=== PATIENT | female | born 1945 | race Caucasian/White ===

== ENCOUNTER 2019-11-21 18:21 | Inpatient (IN) | payer MEDICAID ==
[~2019-11-21] VITALS: Ht 160 cm; Wt 62.1 kg
[2019-11-21 19:13] LABS: BASOPHILS % (AUTO) 0.8 % (0.0-2.0); EOSINOPHILS % (AUTO) 3.4 % (0.0-6.0); HEMATOCRIT 22 % (33-45); HEMOGLOBIN 7.2 g/dL (11.5-14.8); LYMPHOCYTES # (AUTO) 0.3 /CMM (0.8-4.8); LYMPHOCYTES % (AUTO) 5.6 % (20.0-44.0); MEAN CORPUSCULAR HGB CONC 33 g/dl (31.0-36.0); MEAN CORPUSCULAR VOLUME 99 fL (82-100); MONOCYTES # (AUTO) 0.4 /CMM (0.1-1.30); MONOCYTES % (AUTO) 6.3 % (2.0-12.0); NEUTROPHILS # (AUTO) 5.3 /CMM (1.8-8.9); NEUTROPHILS % (AUTO) 83.9 % (43.0-81.0); PLATELET COUNT (AUTO) 267 /CMM (150-450); RED BLOOD CELL COUNT(AUTO) 2.25 MIL/uL (4.0-5.2); WHITE BLOOD COUNT (AUTO) 6.3 K/uL (4.3-11.0)
--- NOTE | 2019-11-21 19:16 | NUR ---
Patient came to ED C/C SOB ,place on monito,EKG ,gown ,Bipap per MD
--- NOTE | 2019-11-21 19:19 | NUR ---
TRansfer care report to Elisabeth KAM
[2019-11-21 19:28] LABS: ALANINE AMINOTRANSFERASE 28 U/L (12-78); ALBUMIN 3.5 g/dL (3.4-5.0); ALKALINE PHOSPHATASE 214 U/L (46-116); ASPARTATE AMINOTRANSFERASE 26 U/L (15-37); BILIRUBIN,DIRECT 0.1 mg/dL (0.0-0.2); BILIRUBIN,TOTAL 0.4 mg/dL (0.2-1.0); CALCIUM, SERUM 8.7 mg/dL (8.5-10.1); CARBON DIOXIDE 24 mmol/L (21-32); CHLORIDE 97 mmol/L (98-107); GLUCOSE 97 mg/dL (74-106); SODIUM SERUM 137 mmol/L (136-145); TOTAL PROTEIN, SERUM 7.8 g/dL (6.4-8.2)
[2019-11-21 19:30] LABS: CREATININE 11.4 mg/dL (0.6-1.3); POTASSIUM 7.3 mmol/L (3.5-5.1); UREA NITROGEN, BLOOD 99 mg/dL (7-18)
[2019-11-21] MEDS ORDERED: ALBUTEROL FS 2.5 MG/3 ML VIAL.NEB ONE (19:45)
[2019-11-21] MEDS ORDERED: Calcium Gluconate 0.465 MEQ/ML VIAL IV ONE (19:48)
[2019-11-21] MEDS ORDERED: INSULIN REGULAR, HUMAN 100 UNIT/ML 10 ML VIAL ONE (19:48)
[2019-11-21] MEDS ORDERED: DEXTROSE 50%-WATER 50 ML DISP.SYRIN ONE ×2 (19:48→19:59)
--- NOTE | 2019-11-21 19:56 | NUR ---
CALLED [facility]. MANAGER CASE MANAGEMENT WAS PAGED
--- NOTE | 2019-11-21 19:59 | NUR ---
CALLED [facility] FOR [facility] BED
[2019-11-21] MEDS ORDERED: DEXTROSE 50%-WATER 50 ML DISP.SYRIN IVP ONE ×2 (20:00→23:00)
[2019-11-21] MEDS ORDERED: Calcium Gluconate 1GM/10ML 4.65 MEQ in IV NS 0.9% 40 ML IV ONE (20:00)
[2019-11-21] MEDS ORDERED: ALBUTEROL FS 2.5 MG/3 ML VIAL.NEB NEB ONE (20:00)
[2019-11-21] MEDS ORDERED: INSULIN REGULAR, HUMAN 100 UNIT/ML 10 ML VIAL IV ONE (20:00)
--- NOTE | 2019-11-21 20:16 | NUR ---
BED 116-2
[2019-11-21] MEDS ORDERED: SEVE800T8 PO (20:28)
[2019-11-21] MEDS ORDERED: CINA30TA2 PO (20:28)
[2019-11-21] MEDS ORDERED: DOCU100C36 PO (20:28)
[2019-11-21] MEDS ORDERED: SENN-18 PO (20:28)
[2019-11-21] MEDS ORDERED: CALC667C6 PO (20:28)
[2019-11-21] MEDS ORDERED: CALC1TAB30 PO (20:28)
[2019-11-21] MEDS ORDERED: ESOM20CA PO (20:28)
[2019-11-21] MEDS ORDERED: FURO-144 PO (20:28)
[2019-11-21] MEDS ORDERED: NIFE60TA2 PO (20:28)
[2019-11-21] MEDS ORDERED: ATOR10TA PO (20:28)
[2019-11-21] MEDS ORDERED: CLON-418 PO (20:28)
--- NOTE | 2019-11-21 21:14 | NUR ---
PT WAS PLACED ON O2 AT 5 LPM VIA NC. SATTING 100% . NO SOB. WILL CONT TO MONITOR ,
[2019-11-21] MEDS ORDERED: Z GUARD REMEDY 2 OZ OINT TP PRN (22:00)
[2019-11-21] MEDS ORDERED: MAG HYDROX/AL HYDROX/SIMETH 30 ML UDC PO PRN (22:00)
[2019-11-21] MEDS ORDERED: HYDROCODONE/APAP 5/325MG 1 EACH TABLET PO PRN (22:00)
[2019-11-21] MEDS ORDERED: SODIUM POLYSTYRENE SULFONATE 15 G/60 ML BOTTLE PO ONE (22:00)
[2019-11-21] MEDS ORDERED: MAGNESIUM HYDROXIDE 30 ML UDC PO PRN (22:00)
[2019-11-21] MEDS ORDERED: ONDANSETRON HCL/PF 4 MG/2 ML VIAL IVP PRN (22:00)
[2019-11-21] MEDS ORDERED: ACETAMINOPHEN 325 MG TABLET PO PRN (22:00)
--- NOTE | 2019-11-21 22:02 | NUR ---
REPORT GIVEN TO MARK FOR RUFUS
--- NOTE | 2019-11-21 22:15 | NUR ---
PT WAS TRANSFERRED TO [facility] UNDER ACLS
--- NOTE | 2019-11-21 22:30 | NUR ---
ACADEMIC PROGRAM SPECIALIST NOTES, RECEIVED PATIENT FROM ER DEPARTMENT AT 2220 IN COMPANY OF 2 NURSES, A/O X3 ABLE TO VERBALIZED NEEDS, STATES FEELING HOT AND NOTED DIAPHORETIC, AND SWEATING, NS KAYDEN AND NSR IN TELE MONITOR, CHECKED BLOOD SUGAR AND NOTED, 30M Gd/L, GAVE 2 JUICES VIA PO, AND CALLED [facility] [employer] AND REPORTED CONDITION, REPLIED WITH NEW ORDER FRO DEXTROSE 50 INJ, NOTED AND CARRIED OUT, WITH VS 59, 104/45, 20, 98% AT 4LMP VIA NC, 95.8, SKIN INTACT, WILL CONTINUE TO MONITOR CLOSELY.
--- NOTE | 2019-11-21 22:47 | NUR ---
RN NOTES, D50% ADMINISTERED ORDERED WILL CONTINUE TO MONITOR CLOSELY.
--- NOTE | 2019-11-21 23:04 | NUR ---
RN NOTES, PATIENT INITIALLY WITH ORDER FOR ICU, TRANSFERRED TO ICU AT THI TIME, ENDORSED PATIENT TO ED CHARGE NURSE AND PRAVEEN RN, ENDORSED THAT PATIENT RECEIVED D50% AND NEED TO BE RECHECKED AT 2317, PATIENT TRANSFERRED WITH ALL ACLS PROTOCOL.
[2019-11-21 23:08] VITALS: BP 118/60
[2019-11-21 23:09] LABS: ABG BASE EXCESS -7.8 mmol/L; ABG OXYGEN SATURATION 80.3 % (92.0-98.5); ABG PCO2 46.8 mmHg (35.0-45.0); ABG PH 7.234 (7.350-7.450); ABG PO2 59.1 mmHg (75.0-100.0); AaDO2 143.3 mmHg; COHb 0.3 % (0.5-1.5); MetHb 0.7 % (0.0-1.5); O2Hb 79.5 % (94.0-97.0); SITE, ABG Right Radial; VENT MODE, BG Nasal Cannula
[2019-11-21 23:15] VITALS: BP 124/58
[2019-11-21 23:30] VITALS: BP 126/64
[2019-11-21] MEDS: SENNOSIDES 8.6 MG TABLET PO SCH (23:34)
[2019-11-21] MEDS: ATORVASTATIN 10 MG TABLET GT SCH (23:34)
[2019-11-21] MEDS: CINACALCET HCL 30 MG TABLET PO SCH (23:34)
[2019-11-21 23:45] VITALS: BP 126/57
[2019-11-22] VITALS (20 sets, daily range): BP systolic 109–154; BP diastolic 52–83
[2019-11-22] MEDS ORDERED: SODIUM POLYSTYRENE SULFONATE 15 G/60 ML BOTTLE ONE (00:05)
--- NOTE | 2019-11-22 02:41 | NUR ---
FLIGHT DIRECTOR PT WAS TRANSFERRED FROM [facility] WITH DIAGNOSIS SEVERE HYPERKALEMIA. PT HAS ESRD, SHE MISSED HER SCHEDULED HD. BUN-99, CREAT-11.4, K-7.3. PT WAS GIVEN INSULIN 6 UNITS IV, D 50 IV, CALCIUM GLUCONATE IV, AND KAYEXALATE 30 G PO.PT IS AWAKE ALERT ORIENTED. DALE. MOVES ALL EXTREMITIES, NO MOTOR OR SENSORY DEFICIT. C/O OF NO PAIN, SOB OR ANY OTHER DISTRESS. VSS, AFEBRILE, SCOPE-SB. 02 4 L VIA N/C, TOLERATES WELL. PT IS SUPPOSED TO HAVE NEPHROLOGY & PULMONOLOGY CONSULTATION IN A.M. WELL CTA WITHOUT CONTRAST TO R/O LUNG MASS. WILL CONTINUE CLOSE MONITORING.
[2019-11-22 04:56] LABS: BASOPHILS % (AUTO) 0.5 % (0.0-2.0); HEMATOCRIT 22 % (33-45); HEMOGLOBIN 7.1 g/dL (11.5-14.8); LYMPHOCYTES # (AUTO) 0.4 /CMM (0.8-4.8); MEAN CORPUSCULAR HGB CONC 33 g/dl (31.0-36.0); MEAN CORPUSCULAR VOLUME 99 fL (82-100); MONOCYTES # (AUTO) 0.3 /CMM (0.1-1.30); MONOCYTES % (AUTO) 5.3 % (2.0-12.0); NEUTROPHILS # (AUTO) 5.3 /CMM (1.8-8.9); NEUTROPHILS % (AUTO) 86.2 % (43.0-81.0); PLATELET COUNT (AUTO) 251 /CMM (150-450); RED BLOOD CELL COUNT(AUTO) 2.18 MIL/uL (4.0-5.2); WHITE BLOOD COUNT (AUTO) 6.2 K/uL (4.3-11.0)
[2019-11-22 05:24] LABS: CALCIUM, SERUM 8.3 mg/dL (8.5-10.1); CARBON DIOXIDE 25 mmol/L (21-32); CHLORIDE 95 mmol/L (98-107); GLUCOSE 63 mg/dL (74-106); MAGNESIUM 3.1 mg/dL (1.8-2.4); SODIUM SERUM 134 mmol/L (136-145)
[2019-11-22 05:42] LABS: CHOLESTEROL 141 mg/dL (<200); HDL CHOLESTEROL 108 mg/dL (40-60); LDL 26 mg/dL (0-99); THYROID STIMULATING HORMONE 2.652 uIU/mL (0.358-3.74)
[2019-11-22 05:48] LABS: CREATININE 11.3 mg/dL (0.6-1.3); POTASSIUM 7.1 mmol/L (3.5-5.1); UREA NITROGEN, BLOOD 100 mg/dL (7-18)
[2019-11-22 05:49] LABS: PHOSPHORUS 9.6 mg/dL (2.5-4.9)
[2019-11-22 06:20] LABS: TRIGLYCERIDES < 15 mg/dL (30-150)
--- NOTE | 2019-11-22 06:35 | NUR ---
EFFICIENCY ANALYST PT IS ANXIOUS, NONCOMPLIANT. CRITICAL LABS K-7.1, BUN-100, CREAT. 11.3, PHOS-9.6. CAROLINE FINN WAS NOTIFIED. HE ORDERED ANOTHER KAYEXALATE 30 G PO & STATED THAT HD NURSE WILL COME AROUND 7-8 A.M. FOR STAT HD. BATH GIVEN, LINEN CHANGED. DENIES SOB OR PAIN. VITAL SIGNS STABLE.
[2019-11-22] MEDS ORDERED: SODIUM POLYSTYRENE SULFONATE 15 G/60 ML BOTTLE PO ONE (07:00)
[2019-11-22] MEDS: PANTOPRAZOLE 40 MG TABLET.DR PO SCH (07:21)
[2019-11-22] MEDS: CALCIUM ACETATE 667 MG TABLET PO SCH ×3 (07:21→17:06)
[2019-11-22] MEDS ORDERED: ESOMEPRAZOLE MAG TRIHYDRATE 20 MG CAPSULE.DR PO SCH (07:30)
--- NOTE | 2019-11-22 07:30 | NUR ---
HOOK TENDER AM NOTES PT IN BED, ASLEEP, RESPONDS TO NAME AND TOUCH, ALERT/ORIENTED X 2-3, PERIOD OF CONFUSION, ON 4L O2 VIA NASAL CANULA, REFUSE TO MOVE OR TURN AND BODY ASSESSMENT, SOB NOTED ON EXERTION OR TURNING, SINUS KAYDEN TO SINUS RHYTHM HR 58 -63. DENIES PAIN, AFEBRILE, KARENA SHUNT THRILL PRESENT, LCW HD CATH CDI DRESSING. RT AC G 20 HL FLUSHES WELL, SITE CLEAR. WEARS DIAPER, CCHO DIET, SAFETY MEASURES IN PLACE, BED LOW LOCKED, WILL CONTINUE CLOSE MONITORING.
--- NOTE | 2019-11-22 08:34 | NUR ---
PSYCHIATRY PHYSICIAN NOTES TAI HD NURSE AT BEDSIDE
[2019-11-22] MEDS: DOCUSATE SODIUM 100 MG CAPSULE PO SCH ×2 (08:56→17:06)
[2019-11-22] MEDS: SEVELAMER CARBONATE 800 MG TABLET PO SCH ×3 (08:56→17:06)
[2019-11-22] MEDS: CALCIUM CARB 250MG /VITAMIN D 1 UDTAB PO SCH (08:56)
[2019-11-22] MEDS: CLONIDINE HCL 0.1 MG TABLET PO SCH ×2 (08:57→17:06)
[2019-11-22] MEDS: NIFEdipine XL 60 MG TAB PO SCH ×2 (09:00→17:06)
[2019-11-22] MEDS: FUROSEMIDE 40 MG TABLET PO SCH ×2 (09:00→17:06)
--- NOTE | 2019-11-22 09:30 | NUR ---
GUEST SERVICES LEAD NOTES BP MEDS NOT GIVEN ONGOING HD
--- NOTE | 2019-11-22 11:10 | NUR ---
RN NOTES HD COMPLETED. 2 LITERS OUT KAYEXELATE 30 GMS GIVEN EARLIER.
[2019-11-22] MEDS ORDERED: ALBUTEROL HALF STRENGTH 1.25 MG/3 ML VIAL.NEB NEB SCH (15:00)
[2019-11-22] MEDS: IPRATROPIUM NEB FS 0.5 MG/2.5 ML AMPUL.NEB NEB SCH ×3 (16:26→23:57)
[2019-11-22] MEDS: ALBUTEROL HALF STRENGTH 1.25 MG/3 ML VIAL.NEB NEB SCH ×3 (16:26→23:57)
--- NOTE | 2019-11-22 16:29 | NUR ---
CLIENT SERVICE ASSOCIATE NOTES PER DR. GALLEGOS OK TO DOWNGRADE TO TELEMETRY
[2019-11-22 16:33] LABS: ABG BASE EXCESS 2.9 mmol/L; ABG PH 7.425 (7.350-7.450); ABG PO2 86.6 mmHg (75.0-100.0); AaDO2 120.2 mmHg; COHb 0.5 % (0.5-1.5); MetHb 0.7 % (0.0-1.5); O2Hb 93.9 % (94.0-97.0); SITE, ABG Right Radial; VENT MODE, BG 4L NASAL CANULA
--- NOTE | 2019-11-22 17:55 | NUR ---
RN NOTES PER JOSE M CHARGE NURSE, GIVE REPORT TO INCOMING NURSE AT TELE 1 FLOOR AND TRANSFER NEXT SHIFT.
--- NOTE | 2019-11-22 18:32 | NUR ---
TELEMARKETING MANAGER CLOSING NOTES PT IN BED, RESTING COMFORTABLY, ALERT/ORIENTED X 2-3, PERIOD OF CONFUSION, ON 4L O2 VIA NASAL CANULA, SOB NOTED ON EXERTION OR TURNING, SINUS KAYDEN TO SINUS RHYTHM HR 58 -68. DENIES PAIN, AFEBRILE, KARENA SHUNT THRILL PRESENT, LCW HD CATH CDI DRESSING. RT AC G 20 HL FLUSHES WELL, SITE CLEAR. WEARS DIAPER, CCHO DIET, SAFETY MEASURES IN PLACE, BED LOW LOCKED, PATIENT ABLE TO TURN SELF INDEPENDENTLY. PM CARE DONE. CALL LIGHT WITHIN REACH. ALL NEEDS MET AT THIS TIME. HOB ELEVATED. WILL ENDORSE TO NEXT SHIFT FOR RUFUS.
--- NOTE | 2019-11-22 19:20 | NUR ---
SENIOR C SOFTWARE ENGINEER OPENING NOTE RECEIVED PT TO BED 112-1 TRANSFERRED FROM ICU. PT AWAKE IN BED, ALERT AND ORIENTED TO NAME, PLACE AND TIME, ON 02 VIA NC 2L/MIN, SATURATING WELL, NO SIGNS OF RESPIRATORY DISTRESS NOTED. ON TELE MONITOR SINUS RHYTHM HR 68. DENIES PAIN. KARENA SHUNT THRILL PRESENT, LCW HD CATH DRESSING INTACT, CLEAN, DRY. IV SITE ON RIGHT AC G20 PATENT, INTACT, WITH HEP LOCK IN PLACE. INTRODUCED SELF TO PT, DISCUSSED PLAN OF CARE. BED IN LOW POSITION, LOCKED, CALL LIGHT WITHIN REACH.
--- NOTE | 2019-11-22 21:02 | NUR ---
GAVE REPORT TO FRANCISCO FOR RUFUS.
--- NOTE | 2019-11-22 21:10 | NUR ---
RECEIVED PATIENT FROM MELISSA KAM FOR RUFUS.
--- NOTE | 2019-11-22 22:08 | NUR ---
GAVE REPORT TO MAN KAM FOR RUFUS.
--- NOTE | 2019-11-22 22:16 | NUR ---
TELE1/RN ASSUMED CARE OF THIS PATIENT FOR CONTINUITY OF CARE, PATIENT IS AWAKE, ALERT, ORIENTED, MILD ANXIETY NOTED, NO DISTRESS NOTED, FALL RISK, FALL PRECAUTIONS IN PLACE. WILL MONITOR.
[2019-11-22] MEDS: CINACALCET HCL 30 MG TABLET PO SCH (23:14)
[2019-11-22] MEDS: SENNOSIDES 8.6 MG TABLET PO SCH (23:14)
[2019-11-22] MEDS: ATORVASTATIN 10 MG TABLET GT SCH (23:14)
[2019-11-23] VITALS (11 sets, daily range): BP systolic 116–200; BP diastolic 45–110
[2019-11-23] MEDS: ALBUTEROL HALF STRENGTH 1.25 MG/3 ML VIAL.NEB NEB SCH ×6 (03:25→23:40)
[2019-11-23] MEDS: IPRATROPIUM NEB FS 0.5 MG/2.5 ML AMPUL.NEB NEB SCH ×6 (03:26→23:40)
--- NOTE | 2019-11-23 06:15 | NUR ---
TELE1/RN PATIENT SLEEPING, AROUSABLE, APPEAR COMFORTABLE, NO SIGNS OF DISTRESS NOTED ALL NEEDS ATTENDED AT THIS TIME, WILL CONTINUE TO MONITOR.
[2019-11-23 07:26] LABS: BASOPHILS % (AUTO) 0.8 % (0.0-2.0); EOSINOPHILS % (AUTO) 5.2 % (0.0-6.0); LYMPHOCYTES # (AUTO) 0.5 /CMM (0.8-4.8); LYMPHOCYTES % (AUTO) 12.7 % (20.0-44.0); MEAN CORPUSCULAR HGB CONC 33 g/dl (31.0-36.0); MEAN CORPUSCULAR VOLUME 98 fL (82-100); MONOCYTES # (AUTO) 0.5 /CMM (0.1-1.30); MONOCYTES % (AUTO) 12.4 % (2.0-12.0); NEUTROPHILS % (AUTO) 68.9 % (43.0-81.0); PLATELET COUNT (AUTO) 228 /CMM (150-450); WHITE BLOOD COUNT (AUTO) 4.3 K/uL (4.3-11.0)
[2019-11-23 07:32] LABS: RED BLOOD CELL COUNT(AUTO) 1.88 MIL/uL (4.0-5.2)
[2019-11-23 07:33] LABS: HEMATOCRIT 19 % (33-45)
[2019-11-23 07:34] LABS: HEMOGLOBIN 6.1 g/dL (11.5-14.8)
--- NOTE | 2019-11-23 07:40 | NUR ---
telemetry technician note patient in bed,2, on tele monitor hr 65 , hl rt ac hl intact ,lt cw hd cath in place, awake alert oriented x2, rt at bedside on breathing tx at this time , plan of care discussed with patient,lt arm av shunt palpable but using for hd at this time , bed in lowest and locked position , will cont to monitor,call light within reach
[2019-11-23 08:15] LABS: CARBON DIOXIDE 28 mmol/L (21-32); CHLORIDE 96 mmol/L (98-107); GLUCOSE 86 mg/dL (74-106); POTASSIUM 4.7 mmol/L (3.5-5.1); SODIUM SERUM 136 mmol/L (136-145); UREA NITROGEN, BLOOD 57 mg/dL (7-18)
[2019-11-23 08:19] LABS: EOSINOPHILS % (MANUAL) 6 % (0-4); LYMPHOCYTES % (MANUAL) 14 % (16-48); MONOCYTES % (MANUAL) 12 % (0-11.0); NEUTROPHILS % (MANUAL) 68 (42-76)
[2019-11-23 08:27] LABS: CREATININE 7.7 mg/dL (0.6-1.3)
[2019-11-23] MEDS: DOCUSATE SODIUM 100 MG CAPSULE PO SCH ×2 (08:33→16:22)
[2019-11-23] MEDS: PANTOPRAZOLE 40 MG TABLET.DR PO SCH (08:33)
[2019-11-23] MEDS: SEVELAMER CARBONATE 800 MG TABLET PO SCH ×3 (08:33→16:21)
[2019-11-23] MEDS: CLONIDINE HCL 0.1 MG TABLET PO SCH ×3 (08:34→16:22)
[2019-11-23] MEDS: CALCIUM ACETATE 667 MG TABLET PO SCH ×3 (08:34→17:13)
[2019-11-23] MEDS: FUROSEMIDE 40 MG TABLET PO SCH ×2 (08:34→16:22)
[2019-11-23] MEDS: CALCIUM CARB 250MG /VITAMIN D 1 UDTAB PO SCH (08:34)
[2019-11-23] MEDS: NIFEdipine XL 60 MG TAB PO SCH ×2 (08:34→16:22)
--- NOTE | 2019-11-23 08:42 | NUR ---
telegraph messenger note hg 6.[address] jackson at bedside aware about this with order to transfuse 1 unit prbs with hd , also Catapres and Procardia hold at this time , patient will have hd
--- NOTE | 2019-11-23 10:34 | NUR ---
BUSINESS APPLICATIONS SPECIALIST NOTES On HD now start blood transfusion 1 unit of packed red blood cells by hd nurse Will continue to monitor and assess per transfusion protocol.
--- NOTE | 2019-11-23 11:41 | NUR ---
television news video editor note hd nurse completed transfuse 1 unit prbc no adverse reaction noted
--- NOTE | 2019-11-23 14:21 | NUR ---
telephone sales representative note hd completed 2,4 l is out. bp192/68 hr 78
--- NOTE | 2019-11-23 15:00 | NUR ---
ms rn note radiology called stated ct chest will done latter on
--- NOTE | 2019-11-23 17:49 | NUR ---
ms rn note taken to ct chest as ordered
--- NOTE | 2019-11-23 18:35 | NUR ---
ms rn note all needs attended having dinner , able to eat self not in distress at this time, will cont to monitor
--- NOTE | 2019-11-23 19:40 | NUR ---
MS RN OPENING NOTES, RECEIVED PATIENT IN BED AWAKE, RESTING COMFORTABLY, A/O X 2, ON 2L NS TOLERATING WELL. NO SOB OR ACUTE DISTRESS NOTED AT THIS TIME. IV ON RAC #20, LCW HD CATH, L ARM AV SHUNT, BED IN LOW/LOCKED POSITION. CALL LIGHT WITHIN REACH, WILL CONTINUE TO MONITOR.
[2019-11-23] MEDS: ATORVASTATIN 10 MG TABLET GT SCH (22:02)
[2019-11-23] MEDS: SENNOSIDES 8.6 MG TABLET PO SCH (22:02)
[2019-11-23] MEDS: CINACALCET HCL 30 MG TABLET PO SCH (22:03)
[2019-11-24] MEDS: ALBUTEROL HALF STRENGTH 1.25 MG/3 ML VIAL.NEB NEB SCH ×4 (03:43→15:04)
[2019-11-24] MEDS: IPRATROPIUM NEB FS 0.5 MG/2.5 ML AMPUL.NEB NEB SCH ×4 (03:43→15:04)
[2019-11-24 04:00] VITALS: BP 145/70
--- NOTE | 2019-11-24 07:22 | NUR ---
MS RN CLOSING NOTES, PATIENT IN BED RESTING, RESTING COMFORTABLY, A/O X 2, ON 2L NS TOLERATING WELL. NO SOB OR ACUTE DISTRESS NOTED AT THIS TIME. IV ON RAC #20, LCW HD CATH, L ARM AV SHUNT, BED IN LOW/LOCKED POSITION. CALL LIGHT WITHIN REACH,ENDORSED THE PATIENT TO AM RN FOR RUFUS.
[2019-11-24 08:00] VITALS: BP 140/58
[2019-11-24 08:04] LABS: BASOPHILS % (AUTO) 0.7 % (0.0-2.0); HEMATOCRIT 23 % (33-45); HEMOGLOBIN 7.4 g/dL (11.5-14.8); LYMPHOCYTES # (AUTO) 0.6 /CMM (0.8-4.8); LYMPHOCYTES % (AUTO) 11.9 % (20.0-44.0); MEAN CORPUSCULAR HGB CONC 33 g/dl (31.0-36.0); MEAN CORPUSCULAR VOLUME 97 fL (82-100); MONOCYTES # (AUTO) 0.5 /CMM (0.1-1.30); MONOCYTES % (AUTO) 10.8 % (2.0-12.0); NEUTROPHILS # (AUTO) 3.2 /CMM (1.8-8.9); NEUTROPHILS % (AUTO) 64.6 % (43.0-81.0); PLATELET COUNT (AUTO) 207 /CMM (150-450); RED BLOOD CELL COUNT(AUTO) 2.33 MIL/uL (4.0-5.2)
[2019-11-24 08:33] LABS: ALANINE AMINOTRANSFERASE 30 U/L (12-78); ALBUMIN 3.1 g/dL (3.4-5.0); ALKALINE PHOSPHATASE 186 U/L (46-116); ASPARTATE AMINOTRANSFERASE 22 U/L (15-37); BILIRUBIN,TOTAL 0.4 mg/dL (0.2-1.0); CALCIUM, SERUM 8.3 mg/dL (8.5-10.1); CARBON DIOXIDE 27 mmol/L (21-32); CHLORIDE 100 mmol/L (98-107); CREATININE 6.3 mg/dL (0.6-1.3); GLUCOSE 86 mg/dL (74-106); MAGNESIUM 2.4 mg/dL (1.8-2.4); PHOSPHORUS 6.7 mg/dL (2.5-4.9); POTASSIUM 4.9 mmol/L (3.5-5.1); SODIUM SERUM 139 mmol/L (136-145); TOTAL PROTEIN, SERUM 7.1 g/dL (6.4-8.2); UREA NITROGEN, BLOOD 53 mg/dL (7-18)
[2019-11-24] MEDS: NIFEdipine XL 60 MG TAB PO SCH ×2 (09:28→17:42)
[2019-11-24] MEDS: DOCUSATE SODIUM 100 MG CAPSULE PO SCH ×2 (09:29→17:42)
[2019-11-24] MEDS: SEVELAMER CARBONATE 800 MG TABLET PO SCH ×3 (09:29→17:42)
[2019-11-24] MEDS: CLONIDINE HCL 0.1 MG TABLET PO SCH ×2 (09:30→17:42)
[2019-11-24] MEDS: PANTOPRAZOLE 40 MG TABLET.DR PO SCH (09:30)
[2019-11-24] MEDS: FUROSEMIDE 40 MG TABLET PO SCH ×2 (09:30→17:42)
[2019-11-24] MEDS: CALCIUM ACETATE 667 MG TABLET PO SCH ×3 (09:32→17:43)
[2019-11-24] MEDS: CALCIUM CARB 250MG /VITAMIN D 1 UDTAB PO SCH (09:37)
[2019-11-24 16:00] VITALS: BP 128/65
[2019-11-24 17:42] VITALS: BP 128/65
[2019-12-21] MEDS ORDERED: FERR325T28 PO (06:30)
[2019-12-21] MEDS ORDERED: ASCO-352 PO (06:30)
== END 2019-11-24 20:41 | DRG 133 ==
LOC: ER 18:23 → TELE1 21:44 → ICU 23:03 → TELE1 11-22 19:25 → MEDSG1 11-23 11:03
PROVIDERS: ADMIT Nurse Practitioner Acute Care; ATTEND Nurse Practitioner Acute Care
PROC: 5A1D70Z Performance of Urinary Filtration, Intermittent, Less than 6 Hours Per Day (ICD-10-PCS; 2019-11-22)
PROC: 30233N1 Transfusion of Nonautologous Red Blood Cells into Peripheral Vein, Percutaneous Approach (ICD-10-PCS; principal; 2019-11-23)
DX: J96.01 Acute respiratory failure with hypoxia (principal); I13.2 Hypertensive heart and chronic kidney disease with heart failure and with stage 5 chronic kidney disease, or end stage renal disease; N17.9 Acute kidney failure, unspecified; E87.5 Hyperkalemia; I27.20 Pulmonary hypertension, unspecified; N18.6 End stage renal disease; E83.39 Other disorders of phosphorus metabolism; I50.9 Heart failure, unspecified; Z99.2 Dependence on renal dialysis; G47.33 Obstructive sleep apnea (adult) (pediatric); J44.9 Chronic obstructive pulmonary disease, unspecified; Z87.891 Personal history of nicotine dependence; Z79.899 Other long term (current) drug therapy; Z95.828 Presence of other vascular implants and grafts; D63.8 Anemia in other chronic diseases classified elsewhere; N25.81 Secondary hyperparathyroidism of renal origin
CPT/HCPCS: 36415; 36600; 71045-TC; 71250-TC; 80048-TC; 80053-TC; 80061-TC; 80076-TC; 82803-TC; 82962-TC; 83735-TC; 84100-TC; 84132-TC; 84443-TC; 84484-TC; 85025-TC; 86706; 86850-TC; 86921-TC; 87081-TC; 87340; 90935-TC; 93307-TC; 94660; 94799-TC; 97116-TC; 97530-TC; A4216; G0378; J0610; J1815; J7030; P9016-BL

== ENCOUNTER 2019-12-21 05:19 | Inpatient (IN) | payer MEDICAID ==
[2019-12-21] VITALS (18 sets, daily range): BP systolic 93–154; BP diastolic 52–71
[~2019-12-21] VITALS: Ht 160 cm; Wt 61.7 kg
[~2019-12-21 05:19] MED LIST: ATOR10TA GT; CALC1TAB30 PO; CALC667C6 PO; CINA30TA2 PO; CLON-418 PO; DOCU100C36 PO; ESOM20CA PO; FURO-144 PO; NIFE60TA2 PO; SENN-18 PO; SEVE800T8 PO
--- NOTE | 2019-12-21 05:25 | NUR ---
BIBRA60 FROM [facility] C/O SOB X20MIN TEACHER OF THE SIGHT IMPAIRED. REC'D 2.5MG ALBUTEROL AT FACILITY AND 5MG ALBUTEROL EN ROUTE. REFUSED DIALYSIS 2X, LAST DIALYSIS X1 WEEK AGO. PT ALERT, OX4. ARRIVED ON O2 AT 5LPM VIA NC. PLACED ON A MONITOR ,
[2019-12-21] MEDS ORDERED: NITROGLYCERIN 0.4 MG/TAB BOTTLE SL ONE (05:30)
[2019-12-21] MEDS ORDERED: NITROGLYCERIN PACKET 1 GM PACKET TD ONE (05:30)
[2019-12-21] MEDS ORDERED: FUROSEMIDE 40 MG/4 ML VIAL IV ONE (05:30)
--- NOTE | 2019-12-21 05:39 | NUR ---
RT AT THE BED SIDE TO PLACE THE PT ON BIPAP
[2019-12-21 05:42] LABS: BASOPHILS # (AUTO) 0.1 /CMM (0.0-0.2); BASOPHILS % (AUTO) 1.2 % (0.0-2.0); EOSINOPHILS % (AUTO) 11.2 % (0.0-6.0); HEMATOCRIT 25 % (33-45); LYMPHOCYTES # (AUTO) 0.5 /CMM (0.8-4.8); LYMPHOCYTES % (AUTO) 11.8 % (20.0-44.0); MEAN CORPUSCULAR HGB CONC 33 g/dl (31.0-36.0); MEAN CORPUSCULAR VOLUME 94 fL (82-100); MONOCYTES # (AUTO) 0.4 /CMM (0.1-1.30); MONOCYTES % (AUTO) 7.7 % (2.0-12.0); NEUTROPHILS # (AUTO) 3.1 /CMM (1.8-8.9); NEUTROPHILS % (AUTO) 68.1 % (43.0-81.0); PLATELET COUNT (AUTO) 223 /CMM (150-450); RED BLOOD CELL COUNT(AUTO) 2.61 MIL/uL (4.0-5.2); WHITE BLOOD COUNT (AUTO) 4.6 K/uL (4.3-11.0)
--- NOTE | 2019-12-21 05:44 | NUR ---
PT W/ LCW HD CATH AND FISTULA ON KARENA.
[2019-12-21] MEDS ORDERED: NITROGLYCERIN 0.4 MG/TAB BOTTLE ONE (05:48)
[2019-12-21] MEDS ORDERED: FUROSEMIDE 40 MG/4 ML VIAL ONE (05:48)
[2019-12-21] MEDS ORDERED: NITROGLYCERIN PACKET 1 GM PACKET ONE (05:49)
[2019-12-21 06:03] LABS: ALANINE AMINOTRANSFERASE 23 U/L (12-78); ALBUMIN 3.7 g/dL (3.4-5.0); ALKALINE PHOSPHATASE 209 U/L (46-116); ASPARTATE AMINOTRANSFERASE 27 U/L (15-37); B-TYPE NATRIURETIC PEPTIDE 30389 PG/ML (0-125); BILIRUBIN,DIRECT 0.1 mg/dL (0.0-0.2); BILIRUBIN,TOTAL 0.4 mg/dL (0.2-1.0); CALCIUM, SERUM 8.5 mg/dL (8.5-10.1); CARBON DIOXIDE 24 mmol/L (21-32); CHLORIDE 94 mmol/L (98-107); GLUCOSE 93 mg/dL (74-106); POTASSIUM 5.6 mmol/L (3.5-5.1); SODIUM SERUM 132 mmol/L (136-145); TOTAL PROTEIN, SERUM 7.7 g/dL (6.4-8.2); UREA NITROGEN, BLOOD 79 mg/dL (7-18)
[2019-12-21 06:15] LABS: MAGNESIUM 2.7 mg/dL (1.8-2.4); PHOSPHORUS 6.1 mg/dL (2.5-4.9)
[2019-12-21] MEDS ORDERED: PANT40TA2 PO (06:30)
[2019-12-21] MEDS ORDERED: MULT1TAB73 PO (06:30)
[2019-12-21] MEDS ORDERED: FERR325T28 GT (06:30)
[2019-12-21] MEDS ORDERED: ASCO500T9 PO (06:30)
[2019-12-21] MEDS ORDERED: HYDR-4076 PO (06:30)
[2019-12-21] MEDS ORDERED: ZINC220T4 PO (06:30)
--- NOTE | 2019-12-21 06:32 | NUR ---
called RT for ABG draw
[2019-12-21 06:42] LABS: ABG BASE EXCESS -1.8 mmol/L; ABG OXYGEN SATURATION 99.4 % (92.0-98.5); ABG PCO2 45.6 mmHg (35.0-45.0); ABG PH 7.338 (7.350-7.450); ABG PO2 480.6 mmHg (75.0-100.0); AaDO2 186.8 mmHg; COHb 0.3 % (0.5-1.5); MetHb 0.7 % (0.0-1.5); O2Hb 98.4 % (94.0-97.0); SITE, ABG Right Radial
--- NOTE | 2019-12-21 07:30 | NUR ---
REPORT RECEIVED FROM KIRSTY KAM. PATIENT ON BIPAP WITH SETTINGS OF: 15/5 50% O2 RATE 12
--- NOTE | 2019-12-21 08:00 | NUR ---
GOT ICU BED 252
--- NOTE | 2019-12-21 08:44 | NUR ---
REPORT GIVEN TO EDIN KAM OF ICU
[2019-12-21] MEDS ORDERED: Z GUARD REMEDY 2 OZ OINT TP PRN (09:00)
[2019-12-21] MEDS ORDERED: ONDANSETRON HCL/PF 4 MG/2 ML VIAL IVP PRN (09:00)
[2019-12-21] MEDS ORDERED: ACETAMINOPHEN 325 MG TABLET PO PRN (09:00)
--- NOTE | 2019-12-21 09:00 | NUR ---
RT END OF THE SHIFT REPORT, PT 74 Y OLD FEMALE REC. 0700 IN ER ON BIPAP FROM PM SHIFT. @0855 PT. TRANSFERRED TO ICU ROOM 252 ON VENT WITH NOTED SETTINGS, ALARMS ARE SET AND FUNCTIONAL, EQUAL CHEST RISE NOTED B/S RALES BILATERALLY./ BIPAP PLUGGED INTO RED OUTLET, AMBU BAG AT THE BEDSIDE. NO CHANGES REPORT WILL PASS NEXT RT Addendum: 12/21/19 at 1853 by CECILIA PATTERSON RT Amended: Links added.
--- NOTE | 2019-12-21 09:40 | NUR ---
RN NOTE 0910: Admitted 74F from ED for emergency HD. Patient is on Bipap during transfer, A/Ox3 but lethargic. VSS. KARENA AV fistula. With LCW HD cath, RAC PIV 18. SR on the monitor. Skin assessment done, noted intact. 0930: S/E by Dr. Ledezma, with order to titrate of Bipap after HD then do ABG. 0940: HD nurse at bedside for HD.
[2019-12-21 11:38] LABS: THYROID STIMULATING HORMONE 4.383 uIU/mL (0.358-3.74)
[2019-12-21 13:16] LABS: ABG BASE EXCESS 2.2 mmol/L; ABG OXYGEN SATURATION 90.8 % (92.0-98.5); ABG PCO2 41.7 mmHg (35.0-45.0); ABG PH 7.426 (7.350-7.450); ABG PO2 65.2 mmHg (75.0-100.0); AaDO2 85.2 mmHg; COHb 0.7 % (0.5-1.5); MetHb 0.1 % (0.0-1.5); O2Hb 90.1 % (94.0-97.0); VENT MODE, BG 2L NC
--- NOTE | 2019-12-21 14:30 | NUR ---
RN NOTE 1200: Done with HD, HD nurse reported 2L out. Placed on 2LPM O2 via NC. 1420: ABG done, Dr. Ledezma aware for the result.
[2019-12-21 14:37] LABS: SITE, ABG Left Radial
--- NOTE | 2019-12-21 17:33 | NUR ---
RN NOTE Per CN, patient may go to tele, made Baltazar RN aware with order for Bipap at night, said it is ok. Tried to call tele1 to give report but RN unavailable. Per Kelsy HERRERA, Danielle will call ICU when ready. Made patient aware for the order of transfer, verbalized understanding. Patient still stable on 2 LPM O2 via NC. Kept HOB elevated.
--- NOTE | 2019-12-21 18:46 | NUR ---
ROUTE CDL DRIVER NOTES RECEIVED PT FROM ICU ALERT ORIENTED. ON 2L NC. SAT 94%. PLACED ON TELEMONITOR. HR 70. PT HAS A RIGHT AC. INTACT & FLUSHING WELL. LEFT CW HEMODIALYSIS CATHETER IN PLACE. VS TAKEN. BED LOW AND LOCKED POSITION. CALL LIGHT WITHIN REACH. WILL ENDORSE CARE TO THE NEXT SHIFT.
--- NOTE | 2019-12-21 18:53 | NUR ---
RN NOTE 1830: Transferred via bed, no significant changes noted. VSS. Report given to Danielle KAM for RUFUS. Still on 2 LPM of O2 via NC, tolerated. No respiratory distress noted.
--- NOTE | 2019-12-21 19:00 | NUR ---
RN OPENING NOTES RECEIVED BEDSIDE REPORT FROM EDDY SORTO FOR RUFUS. PER REPORT PT DOWNGRADE FROM ICU. ON TELE MONITOR SR WITH HR 70'S. PATIENT AWAKE, A/OX4, ABLE TO VERBALIZE NEEDS. DENIES ANY PAIN AT THE MOMENT. ON OXYGEN 2L VIA NASAL CANNULA, HOWEVER COMPLAINING OF SOB, INCREASED O2 TO 3L FOR NOW, STATED SHE FEELS BETTER. IV SITE RIGHT AC 18G, INTACT & FLUSHING WELL, S/L. LEFT CHEST WALL HD CATHETER IN PLACE AND INTACT. ON DIAPER. SAFETY MEASURES IN PLACE; BED IS IN LOW AND LOCKED POSITION, CALL LIGHT WITHIN REACH, SIDE RAILS UP X3, HOB ELEVATED TO 40 DEGREES. WILL CONT TO MONITOR PT CLOSELY.
[2019-12-22] VITALS (8 sets, daily range): BP systolic 117–172; BP diastolic 66–77
--- NOTE | 2019-12-22 00:40 | NUR ---
RN NOTES PATIENT'S SISTER, LENA, CALLED AND UPDATED ON PATIENT STATUS.
--- NOTE | 2019-12-22 06:24 | NUR ---
RN CLOSING NOTES PATIENT SLEEPING IN BED, BUT EASY TO AROUSE, A/OX4, ABLE TO VERBALIZE NEEDS. DENIES ANY PAIN AT THE MOMENT. ON OXYGEN 2L VIA NC, NO SOB OR RESPIRATORY DISTRESS NOTED. IV SITE RIGHT AC 18G, INTACT & FLUSHING WELL, S/L. LEFT CHEST WALL HD CATHETER IN PLACE AND INTACT. PATIENT REFUSED NOC BIPAP DESPITE DISCUSSION OF RISK AND BENEFITS. PATIENT ABLE TO STAND AND WALK TO BEDSIDE COMMODE WITH ASSISTANCE. SAFETY MEASURES IN PLACE; BED IS IN LOW AND LOCKED POSITION, CALL LIGHT WITHIN REACH, SIDE RAILS UP X3, HOB ELEVATED, BED ALARM ON. WILL ENDORSE TO AM RN FOR RUFUS.
--- NOTE | 2019-12-22 07:00 | NUR ---
CLERICAL ASSOCIATE NOTES - OPENING PATIENT IS AWAKE ON THE CHAIR. PATIENT IS A/O X4 ABLE TO VERBALIZE NEEDS. PATIENT DENIES ANY PAIN , NO SOB, NO ACUTE RESPIRATORY DISTRESS. PATIENT IS ON OXYGEN 2L VIA NC. PATIENT HAS RIGHT AC 18 INTACT AND PATIENT. PATIENT HAS LEFT CHEST WALL HD CATHETER IN PLACE AND INTACT. PATIENT IS ABLE TO STAND AND WALK TO BEDSIDE COMMODE WITH ASSISTANCE. PATIENT WAS INFORMED THREE TIMES AND VERBALIZED TEACH BACK TO ALWAYS USE THE CALL LIGHT. BED LOCKED AND LOWEST POSITION CALL LIGHT WITH IN REACH ALL SAFETY MEASURE IMPLEMENTED PER HOSPITAL POLICY
[2019-12-22 07:12] LABS: BASOPHILS % (AUTO) 0.9 % (0.0-2.0); EOSINOPHILS % (AUTO) 10.3 % (0.0-6.0); HEMATOCRIT 23 % (33-45); HEMOGLOBIN 7.7 g/dL (11.5-14.8); LYMPHOCYTES # (AUTO) 0.6 /CMM (0.8-4.8); LYMPHOCYTES % (AUTO) 11.3 % (20.0-44.0); MEAN CORPUSCULAR HGB CONC 33 g/dl (31.0-36.0); MEAN CORPUSCULAR VOLUME 94 fL (82-100); MONOCYTES # (AUTO) 0.6 /CMM (0.1-1.30); MONOCYTES % (AUTO) 10.4 % (2.0-12.0); NEUTROPHILS # (AUTO) 3.6 /CMM (1.8-8.9); NEUTROPHILS % (AUTO) 67.1 % (43.0-81.0); PLATELET COUNT (AUTO) 216 /CMM (150-450); RED BLOOD CELL COUNT(AUTO) 2.47 MIL/uL (4.0-5.2); WHITE BLOOD COUNT (AUTO) 5.4 K/uL (4.3-11.0)
[2019-12-22 07:37] LABS: IRON, SERUM 95 ug/dl (50-175); TOTAL IRON BINDING CAPACITY 177 ug/dl (250-450)
[2019-12-22 07:46] LABS: ALANINE AMINOTRANSFERASE 19 U/L (12-78); ALBUMIN 3.3 g/dL (3.4-5.0); ALKALINE PHOSPHATASE 182 U/L (46-116); ASPARTATE AMINOTRANSFERASE 24 U/L (15-37); BILIRUBIN,TOTAL 0.5 mg/dL (0.2-1.0); CALCIUM, SERUM 8.8 mg/dL (8.5-10.1); CARBON DIOXIDE 27 mmol/L (21-32); CHLORIDE 97 mmol/L (98-107); GLUCOSE 73 mg/dL (74-106); MAGNESIUM 2.4 mg/dL (1.8-2.4); PHOSPHORUS 5.9 mg/dL (2.5-4.9); POTASSIUM 4.7 mmol/L (3.5-5.1); SODIUM SERUM 134 mmol/L (136-145); TOTAL PROTEIN, SERUM 7.4 g/dL (6.4-8.2); UREA NITROGEN, BLOOD 46 mg/dL (7-18)
[2019-12-22 07:49] LABS: CREATININE 8.8 mg/dL (0.6-1.3)
[2019-12-22] MEDS: PANTOPRAZOLE 40 MG TABLET.DR PO SCH (08:33)
[2019-12-22 09:01] LABS: CHOLESTEROL 161 mg/dL (<200); HDL CHOLESTEROL 115 mg/dL (40-60); LDL 28 mg/dL (0-99); THYROID STIMULATING HORMONE 3.226 uIU/mL (0.358-3.74); TRIGLYCERIDES 20 mg/dL (30-150)
[2019-12-22] MEDS: CINACALCET HCL 30 MG TABLET PO SCH (09:25)
[2019-12-22] MEDS: SEVELAMER CARBONATE 800 MG TABLET PO SCH ×2 (13:56→18:08)
--- NOTE | 2019-12-22 18:58 | NUR ---
CLEANING TECHNICIAN - CLOSING \ PATIENT IS AWAKE IN BED SITTING AT THE BEDSIDE. PATIENT IS A/O X4 PATIENT IS ABLE TO VERBALIZED NEEDS. PATIENT DENIES AND PAIN. NO ACUTE RESPIRATORY DISTRESS. PATIENT IS ON OXYGEN 2 L VIA NC. PATIENT HAS AC 18 INTACT AND PATIENT . PATIENT HAS LEFT CHEST WALL HD PATIENT HAD 2000 ML FROM EARILER HD. PATIENT IS ABLE TO STAND AND WALK TO BEDSIDE COMMODE WITH INSULATION ENGINEMAN. PATIENT TOLD 3X TIMES TO USE CALL LIGHT IN ORDER TO BEFORE USING THE COMMODE . BED LOCKED AND LOWEST POSITION CALL LIGHT WITH IN REACH ALL SAFETY MEASURE IMPLEMENTED . PER HOSPITAL POLICY
--- NOTE | 2019-12-22 19:15 | NUR ---
RN OPENING NOTES: PATIENT IN BED, AWAKE, AND VERBALLY RESPONSIVE. NO SOB, ON O2 AT 2LPM VIA NC, TOLERATING WELL. PER AM SHIFT NURSE, PATIENT HAD HD TODAY, 2 L REMOVED. (L) CHEST WALL HD CATH C/D/I. (L) AV SHUNT NOT IN USE. IV ACCESS (R) AC 18G C/D/I. FLUSHING WELL. SALINE LOCKED. SAFETY PRECAUTIONS IMPLEMENTED. BED LOCKED, ALARM ON, AND LOW POSITION. CALL LIGHT PLACED WITHIN REACH. WILL CONT. TO MONITOR.
[2019-12-22] MEDS: ATORVASTATIN 10 MG TABLET GT SCH (21:18)
[2019-12-22] MEDS: SENNOSIDES 8.6 MG TABLET PO SCH (21:18)
--- NOTE | 2019-12-22 21:24 | NUR ---
RN NOTE: PATIENT'S LIPITOR GIVEN VIA BY MOUTH. PATIENT NOT ON GT.
[2019-12-23 04:00] VITALS: BP 142/70
--- NOTE | 2019-12-23 06:30 | NUR ---
RN NOTE: PATIENT HAS DX OF DM. DR. HENRIQUEZ MADE AWARE WITH NEW ORDER FOR ACCUCHECK WITH S/S. WILL CONT. TO MONITOR.
[2019-12-23 06:35] LABS: BASOPHILS # (AUTO) 0.1 /CMM (0.0-0.2); BASOPHILS % (AUTO) 1.3 % (0.0-2.0); EOSINOPHILS % (AUTO) 15.9 % (0.0-6.0); HEMATOCRIT 24 % (33-45); HEMOGLOBIN 7.9 g/dL (11.5-14.8); LYMPHOCYTES # (AUTO) 0.6 /CMM (0.8-4.8); LYMPHOCYTES % (AUTO) 11.6 % (20.0-44.0); MEAN CORPUSCULAR HGB CONC 33 g/dl (31.0-36.0); MEAN CORPUSCULAR VOLUME 94 fL (82-100); MONOCYTES # (AUTO) 0.5 /CMM (0.1-1.30); MONOCYTES % (AUTO) 10.6 % (2.0-12.0); NEUTROPHILS % (AUTO) 60.6 % (43.0-81.0); PLATELET COUNT (AUTO) 213 /CMM (150-450); RED BLOOD CELL COUNT(AUTO) 2.57 MIL/uL (4.0-5.2); WHITE BLOOD COUNT (AUTO) 4.9 K/uL (4.3-11.0)
[2019-12-23] MEDS ORDERED: INSULIN REGULAR, HUMAN 100 UNIT/ML 3 ML VIAL SQ PRN (07:00)
[2019-12-23] MEDS ORDERED: DEXTROSE 50%-WATER 50 ML DISP.SYRIN IV PRN (07:00)
[2019-12-23] MEDS ORDERED: *INSULIN REGULAR(HUMULIN R)HUM 100 UNIT/ML VIAL SQ PRN (07:00)
[2019-12-23 07:09] LABS: CALCIUM, SERUM 8.9 mg/dL (8.5-10.1); CARBON DIOXIDE 28 mmol/L (21-32); CHLORIDE 100 mmol/L (98-107); CREATININE 6.2 mg/dL (0.6-1.3); GLUCOSE 83 mg/dL (74-106); MAGNESIUM 2.3 mg/dL (1.8-2.4); PHOSPHORUS 5.2 mg/dL (2.5-4.9); POTASSIUM 3.9 mmol/L (3.5-5.1); SODIUM SERUM 138 mmol/L (136-145); UREA NITROGEN, BLOOD 29 mg/dL (7-18)
--- NOTE | 2019-12-23 07:20 | NUR ---
RN CLOSING NOTES: PATIENT IN BED, AWAKE, AND VERBALLY RESPONSIVE. NO SOB, ON O2 AT 2LPM VIA NC. DR. HENRIQUEZ ORDERED FOR DIALYSIS TODAY. PATIENT TO DC'D ONCE CLEARED BY NEPHRO. PATIENT HAS (L) CHEST WALL HD CATH C/D/I. (L) AV SHUNT NOT IN USE. IV ACCESS (R) AC 18G C/D/I. FLUSHING WELL. SALINE LOCKED. SAFETY PRECAUTIONS IMPLEMENTED. BED LOCKED, ALARM ON, AND LOW POSITION. ENDORSED TO AM SHIFT NURSE FOR CONTINUITY OF CARE.
--- NOTE | 2019-12-23 07:20 | NUR ---
MS RN NOTES PATIENT IN BED ALERT ORIENTED X 4. NO ACUTE DISTRESS NOTED. BREATHING UNLABORED. NO SOB NOTED. IV ACCESS PATENT AND INTACT, NO REDNESS OR SWELLING NOTED. SAFETY MEASURES IN PLACE. CALL LIGHT WITHIN REACH. WILL CONTINUE TO MONITOR ACCORDINGLY.
[2019-12-23 08:00] VITALS: BP 175/77
[2019-12-23] MEDS: PANTOPRAZOLE 40 MG TABLET.DR PO SCH (08:00)
[2019-12-23] MEDS: BLOOD SUGAR DIAGNOSTIC 1 EACH STRIP IN SCH ×4 (08:00→21:07)
[2019-12-23] MEDS: CINACALCET HCL 30 MG TABLET PO SCH (08:28)
[2019-12-23] MEDS: SEVELAMER CARBONATE 800 MG TABLET PO SCH ×3 (08:28→17:48)
--- NOTE | 2019-12-23 11:30 | NUR ---
MS RN NOTES DIALYSIS DONE, VITAL SIGNS STABLE. PER DIALYSIS NURSE 2 LITERS OUT.
[2019-12-23 12:00] VITALS: BP 137/75
--- NOTE | 2019-12-23 18:38 | NUR ---
MS RN NOTES PATIENT IN BED ALERT ORIENTED X 4. NO ACUTE DISTRESS NOTED. BREATHING UNLABORED. NO SOB NOTED. IV ACCESS PATENT AND INTACT, NO REDNESS OR SWELLING NOTED. NEEDS ATTENDED AND ANTICIPATED. SAFETY MEASURES IN PLACE. CALL LIGHT WITHIN REACH.PATIENT REFUSED TO BE DISCHARGE AT THIS TIME, DR ELIZABETH TOMLINSON MADE AWARE. WILL ENDORSE TO NIGHT NURSE FOR CONTINUITY OF CARE.
[2019-12-23] MEDS ORDERED: QUETIAPINE FUMARATE 25 MG TABLET PO ONE (19:00)
--- NOTE | 2019-12-23 19:30 | NUR ---
RN OPENING NOTES: PATIENT IN BED, AWAKE, AND VERBALLY RESPONSIVE. NO RESPIRATORY DISTRESS, ON O2 AT 2LPM VIA NC, TOLERATING WELL. PER AM SHIFT NURSE, PATIENT HAD HD TODAY, 2 L REMOVED. (L) CHEST WALL HD CATH C/D/I. (L) AV SHUNT NOT IN USE. IV ACCESS (R) AC 18G C/D/I. FLUSHING WELL. SALINE LOCKED. PER AM SHIFT NURSE, SIMONE PAPERS READY AND REPORT GIVEN TO HAI KAM AT [facility]. ALSO STATED THAT PATIENT REFUSED TO BE DISCHARGED TONIGHT. DR. ELIZABETH TOMLINSON WAS MADE AWARE. PATIENT STATED SHE WANTS TO GET DISCHARGED ON FRIDAY MORNING INSTEAD. CHARGE NURSE MADE AWARE. WILL TRY TO ASK THE PATIENT AGAIN LATER. SAFETY PRECAUTIONS IMPLEMENTED. BED LOCKED, ALARM ON, AND LOW POSITION. CALL LIGHT PLACED WITHIN REACH. WILL CONT. TO MONITOR.
[2019-12-23 20:00] VITALS: BP 168/77
--- NOTE | 2019-12-23 20:45 | NUR ---
RN NOTE: PATIENT STILL REFUSING TO BE DISCHARGED. RN AND CHARGE NURSE EXPLAINED TO PATIENT THAT DR. ELIZABETH TOMLINSON ORDERED FOR DC TODAY. PATIENT NOTED SCREAMING AT CHARGE NURSE AND SAYING SHE DOES NOT WANT TO LEAVE THE HOSPITAL YET. ALSO STATED SHE WANTS TO STAY UNTIL FRIDAY MORNING. CHARGE NURSE TRIED TO CONTACT REHABILITATION SERVICES COORDINATOR BUT NO RESPONSE. CALLED DR. CALDERA AND MADE AWARE OF THE SITUATION. PATIENT'S VITAL SIGNS BP 168/77, HR 78, RR 22, TEMP 98.4F. RECEIVED ORDER FOR HYDRALAZINE 25 MG PO X 1 AND TRY TO PROCEED WITH DISCHARGE. Addendum: 12/23/19 at 2313 by KATJA BOATENG RN AT 2145, RECHECKED PATIENT'S BP 152/71 AND HR 70. PATIENT IN STABLE CONDITION AT THIS TIME. PATIENT NOW CALM AND COOPERATIVE. WILL CONT. TO MONITOR.
[2019-12-23 21:00] VITALS: BP 168/77
[2019-12-23] MEDS ORDERED: hydrALAZINE HCL 25 MG TABLET PO ONE (21:00)
[2019-12-23] MEDS: ATORVASTATIN 10 MG TABLET GT SCH (21:03)
[2019-12-23] MEDS: SENNOSIDES 8.6 MG TABLET PO SCH (21:03)
--- NOTE | 2019-12-23 21:27 | NUR ---
RN NOTE: CALLED [facility] TO PUTTER IN PATIENT FOR DISCHARGE. PER [place]OR[place], AMBULANCE WILL ARRIVE IN 1.5 TO 2 HRS.
--- NOTE | 2019-12-23 23:13 | NUR ---
SHINGLE WEAVER NOTES: AT 2300, PATIENT WAS PICKED UP BY [facility]. DC PAPERS AND REPORT GIVEN TO EMT. PATIENT IN STABLE CONDITION AND IN NO ACUTE DISTRESS. VITAL SIGNS BP 156/75, HR 71, RR 20, TEMP 98.4F, O2 SAT 97%. PATIENT REMAINS CALM AND COOPERATIVE AT THIS TIME. PATIENT IS GOING TO [facility]. SPOKE WITH MORGAN AND NOTIFIED PATIENT IS ON THE WAY. PER CHARGE NURSE, KEEP IV LINE. RN NUTRITION COORDINATOR MADE AWARE OF DISCHARGE.
== END 2019-12-23 23:00 | DRG 133 ==
LOC: ER 05:20 → ICU 08:06 → TELE1 18:40 → MEDSG1 12-22 08:55
PROVIDERS: ADMIT Nurse Practitioner Acute Care; ATTEND Nurse Practitioner Acute Care
PROC: 5A1D70Z Performance of Urinary Filtration, Intermittent, Less than 6 Hours Per Day (ICD-10-PCS; principal; 2019-12-21)
PROC: 5A09357 Assistance with Respiratory Ventilation, Less than 24 Consecutive Hours, Continuous Positive Airway Pressure (ICD-10-PCS; principal; 2019-12-21)
DX: J96.01 Acute respiratory failure with hypoxia (principal); I13.2 Hypertensive heart and chronic kidney disease with heart failure and with stage 5 chronic kidney disease, or end stage renal disease; E11.22 Type 2 diabetes mellitus with diabetic chronic kidney disease; E83.39 Other disorders of phosphorus metabolism; E87.5 Hyperkalemia; E83.41 Hypermagnesemia; I50.33 Acute on chronic diastolic (congestive) heart failure; N18.6 End stage renal disease; Z99.2 Dependence on renal dialysis; Z91.15 Patient's noncompliance with renal dialysis; I25.10 Atherosclerotic heart disease of native coronary artery without angina pectoris; D63.1 Anemia in chronic kidney disease; J45.909 Unspecified asthma, uncomplicated; E78.5 Hyperlipidemia, unspecified; J44.9 Chronic obstructive pulmonary disease, unspecified; G47.33 Obstructive sleep apnea (adult) (pediatric); N25.81 Secondary hyperparathyroidism of renal origin; E87.1 Hypo-osmolality and hyponatremia; Z91.19 Patient's noncompliance with other medical treatment and regimen; R74.0 Nonspecific elevation of levels of transaminase and lactic acid dehydrogenase [LDH]
CPT/HCPCS: 36415; 36600; 71045-TC; 80048-TC; 80053-TC; 80061-TC; 80076-TC; 82728-TC; 82803-TC; 82962-TC; 83540-TC; 83735-TC; 83880; 84100-TC; 84439-TC; 84443-TC; 84484-TC; 85025-TC; 85730-TC; 86706; 87081-TC; 87340; 90935-TC; 94799-TC; 99082-TC; G0378; J1815; J1940

== ENCOUNTER 2020-01-01 17:02 | Inpatient (IN) | payer MEDICAID ==
[~2020-01-01] VITALS: Ht 152.4 cm; Wt 58.5 kg
[~2020-01-01 17:02] MED LIST changes: +ASCO-352 PO; -ATOR10TA GT; +ATOR10TA PO; -ESOM20CA PO; +FERR325T28 PO; +HYDR-4076 PO; +MULT1TAB73 PO; +PANT40TA2 PO; +ZINC220T4 PO
--- NOTE | 2020-01-01 17:05 | NUR ---
BIBRA60 [facility], SOB AND ANXIETY. PER REPORT PT SKIP DIALYSIS TODAY. TO ER BED 11, HOOKED TO CHEMICAL LAB TECHNICIAN AND POX, O2 SATURATION AT 82% RA, PLACED ON O2 VIA NC AT 3LPM, O2 SATURATION WENT UP TO 93%. CHANGED TO HOSP GOWN, WARM BLANKET PROVIDED, AWAITING MD GARZA,.
--- NOTE | 2020-01-01 17:12 | NUR ---
DR CHATTERJEE AT BEDSIDE
[2020-01-01] MEDS ORDERED: ACET-868 PO (17:37)
[2020-01-01] MEDS ORDERED: MAGN400O6 PO (17:37)
[2020-01-01] MEDS ORDERED: LORA-259 PO (17:37)
[2020-01-01] MEDS ORDERED: IPRA3AMP23 IH (17:37)
[2020-01-01 17:40] LABS: BASOPHILS # (AUTO) 0.1 /CMM (0.0-0.2); BASOPHILS % (AUTO) 0.9 % (0.0-2.0); EOSINOPHILS % (AUTO) 13.3 % (0.0-6.0); HEMATOCRIT 21 % (33-45); HEMOGLOBIN 7.1 g/dL (11.5-14.8); LYMPHOCYTES # (AUTO) 0.6 /CMM (0.8-4.8); LYMPHOCYTES % (AUTO) 11.2 % (20.0-44.0); MEAN CORPUSCULAR HGB CONC 33 g/dl (31.0-36.0); MEAN CORPUSCULAR VOLUME 95 fL (82-100); MONOCYTES # (AUTO) 0.5 /CMM (0.1-1.30); MONOCYTES % (AUTO) 9.2 % (2.0-12.0); NEUTROPHILS # (AUTO) 3.6 /CMM (1.8-8.9); NEUTROPHILS % (AUTO) 65.4 % (43.0-81.0); PLATELET COUNT (AUTO) 231 /CMM (150-450); RED BLOOD CELL COUNT(AUTO) 2.25 MIL/uL (4.0-5.2); WHITE BLOOD COUNT (AUTO) 5.6 K/uL (4.3-11.0)
[2020-01-01 17:57] LABS: ALANINE AMINOTRANSFERASE 23 U/L (12-78); ALBUMIN 3.7 g/dL (3.4-5.0); ALKALINE PHOSPHATASE 186 U/L (46-116); ASPARTATE AMINOTRANSFERASE 27 U/L (15-37); BILIRUBIN,DIRECT 0.1 mg/dL (0.0-0.2); BILIRUBIN,TOTAL 0.5 mg/dL (0.2-1.0); CALCIUM, SERUM 8.7 mg/dL (8.5-10.1); CARBON DIOXIDE 26 mmol/L (21-32); CHLORIDE 95 mmol/L (98-107); GLUCOSE 86 mg/dL (74-106); POTASSIUM 5.3 mmol/L (3.5-5.1); SODIUM SERUM 134 mmol/L (136-145); TOTAL PROTEIN, SERUM 7.6 g/dL (6.4-8.2); UREA NITROGEN, BLOOD 70 mg/dL (7-18)
[2020-01-01 18:01] LABS: CREATININE 11.3 mg/dL (0.6-1.3)
[2020-01-01] MEDS ORDERED: INSU100V42 SQ (18:05)
--- NOTE | 2020-01-01 18:53 | NUR ---
CALLED NURSING SUP FOR TELE BED.
--- NOTE | 2020-01-01 19:21 | NUR ---
NURSING SUP GAVE TELE BED 116-1.
--- NOTE | 2020-01-01 19:30 | NUR ---
PAGED [facility].
--- NOTE | 2020-01-01 19:35 | NUR ---
REPORT GIVEN TO EDDY BRAGA
[2020-01-01] MEDS ORDERED: ONDANSETRON HCL/PF 4 MG/2 ML VIAL IVP PRN (20:00)
[2020-01-01] MEDS ORDERED: DEXTROSE 50%-WATER 50 ML DISP.SYRIN IV PRN (20:00)
[2020-01-01] MEDS ORDERED: HYDROCODONE/APAP 5/325MG 1 EACH TABLET PO PRN (20:00)
[2020-01-01] MEDS ORDERED: LORAZEPAM 1 MG TABLET PO PRN (20:00)
[2020-01-01] MEDS ORDERED: INSULIN REGULAR, HUMAN 100 UNIT/ML 3 ML VIAL SQ PRN (20:00)
[2020-01-01] MEDS ORDERED: MAGNESIUM HYDROXIDE 30 ML UDC PO PRN ×2 (20:00)
[2020-01-01] MEDS ORDERED: ZOLPIDEM TARTRATE 5 MG TABLET PO PRN (20:00)
[2020-01-01] MEDS ORDERED: Medication Not On Formulary EA (Ipratropium/Albuterol Sulfate (Duoneb 2.5-0.5 Mg/3 Ml So IH PRN (20:00)
[2020-01-01] MEDS ORDERED: MAG HYDROX/AL HYDROX/SIMETH 30 ML UDC PO PRN (20:00)
[2020-01-01] MEDS ORDERED: Z GUARD REMEDY 2 OZ OINT TP PRN (20:00)
[2020-01-01] MEDS ORDERED: ACETAMINOPHEN 325 MG TABLET PO PRN (20:00)
--- NOTE | 2020-01-01 20:15 | NUR ---
RECEIVED PATIENT FROM ED VIA GURNEY IN STABLE CONDITION. NO DISTRESS NOTED. PATIENT AWAKE, A/O AND ABLE TO VERBALIZED NEEDS. SPO2 97% AT 4L VIA NC, REST OF VITALS WNL. RADHA PERMACATH INTACT WITH DRESSING CLEAN DRY AND INTACT. KARENA AV SHUNT INTACT WITH (+) BRUIT AND THRILL. NO C/O PAIN OR DISCOMFORT. ENCOURAGED USE OF CALL LIGHT FOR ASSISTANCE AND VERBALIZED GOOD UNDERSTANDING. ROOM FREE OF CLUTTER AND BELONGINGS KEPT NEAR BEDSIDE. BED IN LOW LOCK SETTING WITH BED ALARM ON AND FUNCTIONING PROPERLY. WILL CONTINUE TO MONITOR
--- NOTE | 2020-01-01 20:24 | NUR ---
PT TRANSFERRED IN STABLE CONDITION TO [facility]
[2020-01-01] MEDS: ALBUTEROL FS 2.5 MG/0.5 ML VIAL.NEB NEB PRN (20:50)
[2020-01-01] MEDS: IPRATROPIUM NEB FS 0.5 MG/2.5 ML AMPUL.NEB IH PRN (20:50)
[2020-01-01 21:00] VITALS: BP 144/72
[2020-01-01] MEDS: BLOOD SUGAR DIAGNOSTIC 1 EACH STRIP IN SCH (21:34)
[2020-01-01] MEDS: ATORVASTATIN 10 MG TABLET PO SCH (21:34)
[2020-01-01] MEDS: CINACALCET HCL 30 MG TABLET PO SCH (21:34)
[2020-01-01] MEDS: SENNOSIDES 8.6 MG TABLET PO SCH (21:35)
[2020-01-02] MEDS: IPRATROPIUM NEB FS 0.5 MG/2.5 ML AMPUL.NEB IH PRN ×4 (03:26→19:36)
[2020-01-02] MEDS: ALBUTEROL FS 2.5 MG/0.5 ML VIAL.NEB NEB PRN ×4 (03:26→19:36)
--- NOTE | 2020-01-02 06:32 | NUR ---
MS BEHZAD NOTES PATIENT ASLEEP IN BED WITH NO DISTRESS NOTED. CALL LIGHT WITHIN REACH. NO C/O PAIN OR DISCOMFORT. RADHA PERMACATH INTACT WITH DRESSING CLEAN DRY AND INTACT. KARENA AV SHUNT INTACT WITH (+) BRUIT AND THRILL. PERIPHERAL LINE INTACT AND PATENT. ROOM FREE OF CLUTTER AND BELONGINGS KEPT NEAR BEDSIDE. BED IN LOW LOCK SETTING WITH BED ALARM ON AND FUNCTIONING PROPERLY. WILL CONTINUE TO MONITOR
[2020-01-02] MEDS: BLOOD SUGAR DIAGNOSTIC 1 EACH STRIP IN SCH ×4 (07:30→21:27)
[2020-01-02 08:00] VITALS: BP 157/77
[2020-01-02 08:13] LABS: BASOPHILS # (AUTO) 0.1 /CMM (0.0-0.2); BASOPHILS % (AUTO) 1.3 % (0.0-2.0); EOSINOPHILS % (AUTO) 12.1 % (0.0-6.0); HEMATOCRIT 21 % (33-45); HEMOGLOBIN 7.2 g/dL (11.5-14.8); LYMPHOCYTES # (AUTO) 0.7 /CMM (0.8-4.8); LYMPHOCYTES % (AUTO) 13.3 % (20.0-44.0); MEAN CORPUSCULAR HGB CONC 34 g/dl (31.0-36.0); MEAN CORPUSCULAR VOLUME 95 fL (82-100); MONOCYTES # (AUTO) 0.6 /CMM (0.1-1.30); MONOCYTES % (AUTO) 10.1 % (2.0-12.0); NEUTROPHILS # (AUTO) 3.5 /CMM (1.8-8.9); NEUTROPHILS % (AUTO) 63.2 % (43.0-81.0); PLATELET COUNT (AUTO) 230 /CMM (150-450); RED BLOOD CELL COUNT(AUTO) 2.26 MIL/uL (4.0-5.2); WHITE BLOOD COUNT (AUTO) 5.5 K/uL (4.3-11.0)
[2020-01-02 08:41] LABS: CHOLESTEROL 144 mg/dL (<200); HDL CHOLESTEROL 117 mg/dL (40-60); LDL 21 mg/dL (0-99); TRIGLYCERIDES 4 mg/dL (30-150)
[2020-01-02 08:43] LABS: CALCIUM, SERUM 7.9 mg/dL (8.5-10.1); CARBON DIOXIDE 24 mmol/L (21-32); CHLORIDE 95 mmol/L (98-107); GLUCOSE 77 mg/dL (74-106); MAGNESIUM 2.8 mg/dL (1.8-2.4); PHOSPHORUS 7.1 mg/dL (2.5-4.9); POTASSIUM 5.3 mmol/L (3.5-5.1); SODIUM SERUM 134 mmol/L (136-145); UREA NITROGEN, BLOOD 77 mg/dL (7-18)
[2020-01-02 08:52] LABS: CREATININE 12.1 mg/dL (0.6-1.3)
[2020-01-02] MEDS: MULTIVITAMINS,THERAGRAN 1 UDTAB TABLET PO SCH (08:52)
[2020-01-02] MEDS: SEVELAMER CARBONATE 800 MG TABLET PO SCH ×3 (08:52→16:55)
[2020-01-02] MEDS: ZINC SULFATE 220 MG CAPSULE PO SCH (08:52)
[2020-01-02] MEDS: NIFEdipine XL 60 MG TAB PO SCH ×2 (08:52→16:52)
[2020-01-02] MEDS: DOCUSATE SODIUM 100 MG CAPSULE PO SCH ×2 (08:52→16:51)
[2020-01-02] MEDS: FERROUS SULFATE (325 MG) 325 MG/TAB TABLET PO SCH (08:52)
[2020-01-02] MEDS: ASCORBIC ACID 500 MG TABLET PO SCH (08:52)
[2020-01-02] MEDS: hydrALAZINE HCL 25 MG TABLET PO SCH ×3 (08:53→16:53)
[2020-01-02 12:00] VITALS: BP 132/65
[2020-01-02] MEDS ORDERED: EPOETIN ALFA (10,000 UNIT) 10,000 UNIT/ML VIAL IV ONE (15:00)
[2020-01-02 16:00] VITALS: BP 132/65
--- NOTE | 2020-01-02 17:07 | NUR ---
alert, oriented, able to walk from bed to bathroom, or her bsc, no complaint of pain, no sob noted, denied dyspnea. mood lability noted, yelling, screaming for no reason. dangling, and claimed she cant breathe, demands neb tx almost every 4hrs. awaiting dialysis this evening, explained to her , by her forecast analyst in room
--- NOTE | 2020-01-02 19:40 | NUR ---
MS RN OPENING NOTES RECEIVED PATIENT FROM MORNING SHIFT, ALERT AND ORIENTED X 3. ANXIOUS AND REQUESTING FOR BREATHING TREATMENT, RT NOTIFIED. FAMILY ON BEDSIDE. BREATHING REGULAR AND UNLABORED ON OXYGEN AT 4L/MIN VIA NASAL CANNULA. RIGHT AC G20 IV LINE INTACT AND PATENT, FLUSHING WELL WITH NO BLEEDING OR S/S OF INFILTRATION NOTED. BODY ASSESSMENT DONE, SKIN REMAINED INTACT CLEAN AND DRY. NO COMPLAINTS OF PAIN/DISCOMFORT REPORTED OF THE TIME. BED LOW AND LOCKED ON SEMI FOWLERS POSITION. CALL LIGHT IN REACH. WILL CONTINUE TO MONITOR.
--- NOTE | 2020-01-02 20:45 | NUR ---
MS RN NOTES DIALYSIS SESSION STARTED. VITAL SIGNS TAKEN. NO S/S OF DISTRESS NOTED AT THIS TIME. NO ACTIVE BLEEDING SEEN ON HD CATH. WILL CONTINUE TO MONITOR.
[2020-01-02] MEDS: ATORVASTATIN 10 MG TABLET PO SCH (21:27)
[2020-01-02] MEDS: SENNOSIDES 8.6 MG TABLET PO SCH (21:27)
[2020-01-02] MEDS: CINACALCET HCL 30 MG TABLET PO SCH (21:27)
--- NOTE | 2020-01-02 22:00 | NUR ---
MS RN NOTES BS 115mg/dl, NO INSULIN COVERAGE NEEDED. WILL CONTINUE TO MONITOR.
[2020-01-02 23:00] VITALS: BP 128/62
--- NOTE | 2020-01-02 23:00 | NUR ---
MS RN NOTES S/P HEMODIALYSIS WITH 2000CC OUTPUT. BS 128/62 HR72 RR18 Temp98. NO ACTIVE BLEEDING NOTED ON LEFT UPPER CHEST PERMACATH. REMAINED ALERT AND ORIENTED X 3. NO COMPLAINTS OF PAIN/I\DISCOMFORT REPORTED. WILL CONTINUE TO MONITOR.
[2020-01-02] MEDS: IPRATROPIUM NEB FS 0.5 MG/2.5 ML AMPUL.NEB NEB SCH (23:18)
[2020-01-03] VITALS (7 sets, daily range): BP systolic 109–159; BP diastolic 52–79
[2020-01-03] MEDS ORDERED: IPRATROPIUM NEB FS 0.5 MG/2.5 ML AMPUL.NEB NEB SCH
[2020-01-03] MEDS: IPRATROPIUM NEB FS 0.5 MG/2.5 ML AMPUL.NEB NEB SCH ×6 (03:21→23:33)
--- NOTE | 2020-01-03 06:15 | NUR ---
MS RN CLOSING NOTES PATIENT IN BED ALERT AND ORIENTED X 3. VERBALLY RESPONSIVE AND ABLE TO FOLLOW DIRECTIONS. BREATHING REGULAR AND UNLABORED ON OXYGEN AT 4L/MIN VIA NASAL CANNULA. RIGHT AC G20 IV LINE PATENT AND FLUSHING WELL. S/P HD 2000cc OUTPUT. NO COMPLAINTS OF PAIN/DISCOMFORT REPORTED THE WHOLE SHIFT. BED LOW AND LOCKED ON SEMI FOWLERS POSITION. CALL LIGHT IN REACH. WILL ENDORSE TO MORNING SHIFT FOR RUFUS.
[2020-01-03 07:03] LABS: BASOPHILS % (AUTO) 0.8 % (0.0-2.0); EOSINOPHILS % (AUTO) 12.3 % (0.0-6.0); HEMATOCRIT 21 % (33-45); LYMPHOCYTES # (AUTO) 0.5 /CMM (0.8-4.8); LYMPHOCYTES % (AUTO) 11.1 % (20.0-44.0); MEAN CORPUSCULAR HGB CONC 32 g/dl (31.0-36.0); MEAN CORPUSCULAR VOLUME 95 fL (82-100); MONOCYTES # (AUTO) 0.5 /CMM (0.1-1.30); MONOCYTES % (AUTO) 12.2 % (2.0-12.0); NEUTROPHILS # (AUTO) 2.8 /CMM (1.8-8.9); NEUTROPHILS % (AUTO) 63.6 % (43.0-81.0); PLATELET COUNT (AUTO) 196 /CMM (150-450); WHITE BLOOD COUNT (AUTO) 4.4 K/uL (4.3-11.0)
[2020-01-03 07:15] LABS: HEMOGLOBIN 6.8 g/dL (11.5-14.8)
[2020-01-03] MEDS: BLOOD SUGAR DIAGNOSTIC 1 EACH STRIP IN SCH ×4 (07:30→21:40)
[2020-01-03 07:34] LABS: CARBON DIOXIDE 24 mmol/L (21-32); CHLORIDE 97 mmol/L (98-107); CREATININE 6.8 mg/dL (0.6-1.3); EOSINOPHILS % (MANUAL) 11 % (0-4); GLUCOSE 83 mg/dL (74-106); LYMPHOCYTES % (MANUAL) 10 % (16-48); MONOCYTES % (MANUAL) 13 % (0-11.0); NEUTROPHILS % (MANUAL) 66 (42-76); POTASSIUM 4.2 mmol/L (3.5-5.1); SODIUM SERUM 135 mmol/L (136-145); UREA NITROGEN, BLOOD 40 mg/dL (7-18)
--- NOTE | 2020-01-03 07:52 | NUR ---
rn opening notes Patient received on nasal cannula, 4L per minute. No sob noted, a.i x3 at this time. DEANDRE christianson, R AC 20 SL, KARENA SV shunt not working at this time. Bed at the lowest setting, call light within reach, side rails up x2.
[2020-01-03] MEDS: FERROUS SULFATE (325 MG) 325 MG/TAB TABLET PO SCH (08:59)
[2020-01-03] MEDS: ASCORBIC ACID 500 MG TABLET PO SCH (08:59)
[2020-01-03] MEDS: DOCUSATE SODIUM 100 MG CAPSULE PO SCH ×2 (08:59→17:27)
[2020-01-03] MEDS: SEVELAMER CARBONATE 800 MG TABLET PO SCH ×3 (08:59→17:26)
[2020-01-03] MEDS: ZINC SULFATE 220 MG CAPSULE PO SCH (08:59)
[2020-01-03] MEDS: hydrALAZINE HCL 25 MG TABLET PO SCH ×3 (08:59→17:27)
[2020-01-03] MEDS: MULTIVITAMINS,THERAGRAN 1 UDTAB TABLET PO SCH (09:00)
[2020-01-03] MEDS: NIFEdipine XL 60 MG TAB PO SCH ×2 (09:00→17:27)
--- NOTE | 2020-01-03 11:50 | NUR ---
RN NOTES Patient refused insulin coverage on her blood sugar of 138.
[2020-01-03] MEDS: PANTOPRAZOLE 40 MG TABLET.DR PO SCH (13:16)
--- NOTE | 2020-01-03 17:32 | NUR ---
RN NOTES BLOOD SUGAR LEVEL OF 132 AT THIS TIME. Patient refuses insulin coverage.
--- NOTE | 2020-01-03 18:51 | NUR ---
rn notes Patient remains on 2 L nasal cannula at this time, no sob noted, a/o x3 and denies pain at this time. R AC 20 SL, LUCW perma cath. KARENA AV shunt is not working. Patient is status post blood transfusion, vital signs remain stable through out. Awaiting for blood to be drawn from LAB at this time, as their first attempt failed. Bed at the lowest setting, call light within reach, side rails up x2. Will give report to NOC RN for RUFUS bedside.
--- NOTE | 2020-01-03 19:32 | NUR ---
RN OPENING NOTES: Received pt resting in bed A&Ox2. On 2L/min NC tolerating well. No respiratory distress noted. Pt is ambulatory w/ assist. Has a bedside commode. Has IV site on right AC #20 patent and flushing. Dressing c/d/i, Has RADHA permacath. Has KARENA AV shunt that does not work. Pt is s/p blood transfusion. Awaiting H&H lab results. Safety measures in place. Bed in lowest and locked position, side rails up x2, call light w/in reach. Will continue to monitor.
--- NOTE | 2020-01-03 21:00 | NUR ---
RN NOTE: Pt noted to have pulled out IV site. No infiltration or pain noted. Charge nurse made aware. Started a new line on right wrist #24 patent and flushing.
[2020-01-03] MEDS: SENNOSIDES 8.6 MG TABLET PO SCH (21:36)
[2020-01-03] MEDS: CINACALCET HCL 30 MG TABLET PO SCH (21:36)
[2020-01-03] MEDS: ATORVASTATIN 10 MG TABLET PO SCH (21:36)
--- NOTE | 2020-01-03 21:42 | NUR ---
RN NOTE: Pt's BS 118. Refused insulin. Stated "I do not take insulin" Explained risks and benefits x3 and continued to refuse. Charge nurse made aware. Will continue to monitor.
[2020-01-03 22:33] LABS: HEMOGLOBIN 8.7 g/dL (11.5-14.8)
[2020-01-04 04:00] VITALS: BP 121/72
[2020-01-04] MEDS: IPRATROPIUM NEB FS 0.5 MG/2.5 ML AMPUL.NEB NEB SCH ×4 (04:48→14:33)
[2020-01-04 06:32] LABS: BASOPHILS % (AUTO) 0.6 % (0.0-2.0); EOSINOPHILS % (AUTO) 13.7 % (0.0-6.0); HEMATOCRIT 24 % (33-45); HEMOGLOBIN 7.8 g/dL (11.5-14.8); LYMPHOCYTES # (AUTO) 0.5 /CMM (0.8-4.8); LYMPHOCYTES % (AUTO) 8.6 % (20.0-44.0); MEAN CORPUSCULAR HGB CONC 33 g/dl (31.0-36.0); MEAN CORPUSCULAR VOLUME 94 fL (82-100); MONOCYTES # (AUTO) 0.6 /CMM (0.1-1.30); NEUTROPHILS # (AUTO) 3.5 /CMM (1.8-8.9); NEUTROPHILS % (AUTO) 66.1 % (43.0-81.0); PLATELET COUNT (AUTO) 183 /CMM (150-450); RED BLOOD CELL COUNT(AUTO) 2.53 MIL/uL (4.0-5.2); WHITE BLOOD COUNT (AUTO) 5.2 K/uL (4.3-11.0)
--- NOTE | 2020-01-04 06:50 | NUR ---
RN CLOSING NOTES: Pt resting in bed on 2L/min NC tolerating well. No SOB or respiratory distress noted during shift. No acute changes noted during shift. IV site on right wrist patent and flushing. Dressing c/d/i. All medications given as ordered. Bed in lowest and locked position, side rails up x2, call light within reach. Will endorse to AM nurse for RUFUS.
[2020-01-04 06:51] LABS: CALCIUM, SERUM 8.1 mg/dL (8.5-10.1); CARBON DIOXIDE 26 mmol/L (21-32); CHLORIDE 95 mmol/L (98-107); GLUCOSE 96 mg/dL (74-106); SODIUM SERUM 132 mmol/L (136-145); UREA NITROGEN, BLOOD 51 mg/dL (7-18)
[2020-01-04 06:55] LABS: CREATININE 7.8 mg/dL (0.6-1.3)
--- NOTE | 2020-01-04 07:00 | NUR ---
MS RN RECEIVED ON BED,AWAKE,ALERT,ORIENTED X4,NOT IN ANY FORM OF DISTRESS, RESPIRATIONS EVEN AND UNLABORED,NO SOD NOTED,LUNGS ARE DIMINISHED,ABDOMEN SOFT,POSITIVE BOWEL SOUNDS,DENIES PAIN AT THIS TIME,ALL NEEDS ATTENDED.
[2020-01-04 08:00] VITALS: BP 144/66
[2020-01-04] MEDS: FERROUS SULFATE (325 MG) 325 MG/TAB TABLET PO SCH (08:45)
[2020-01-04] MEDS: DOCUSATE SODIUM 100 MG CAPSULE PO SCH (08:45)
[2020-01-04] MEDS: MULTIVITAMINS,THERAGRAN 1 UDTAB TABLET PO SCH (08:45)
[2020-01-04] MEDS: PANTOPRAZOLE 40 MG TABLET.DR PO SCH (08:45)
[2020-01-04] MEDS: ASCORBIC ACID 500 MG TABLET PO SCH (08:46)
[2020-01-04] MEDS: ZINC SULFATE 220 MG CAPSULE PO SCH (08:46)
[2020-01-04] MEDS: SEVELAMER CARBONATE 800 MG TABLET PO SCH ×2 (08:46→13:51)
[2020-01-04] MEDS: BLOOD SUGAR DIAGNOSTIC 1 EACH STRIP IN SCH ×2 (08:47→13:52)
--- NOTE | 2020-01-04 09:00 | NUR ---
MS KAM BREAKFAST SERVED,DUE MEDS GIVEN,TOLERATED WELL. WILL MONITOR PATIENT'S CONDITION.
--- NOTE | 2020-01-04 10:00 | NUR ---
MS KAM WAS SEEN BY DR. LESLIE Madden/ ORDERS MADE AND CARRIED OUT.
--- NOTE | 2020-01-04 10:00 | NUR ---
MS RN WAS SEEN AN D
[2020-01-04] MEDS: hydrALAZINE HCL 25 MG TABLET PO SCH ×2 (13:00→13:51)
[2020-01-04] MEDS: NIFEdipine XL 60 MG TAB PO SCH (13:52)
--- NOTE | 2020-01-04 14:00 | NUR ---
MS RN HD FINISHED W/ 2000ML TAKEN OUT. WILL BE DISCHARGE SOON AFTER HD.
[2020-01-04 16:00] VITALS: BP 148/102
--- NOTE | 2020-01-04 16:30 | NUR ---
ms rn patient was refusing to go back to facility but afreed after,no distress noted.refused to remove the iv, endorsed to gaurav luna.
[2020-01-04] MEDS ORDERED: LORAZEPAM INJ 2 MG/ML VIAL IV ONE (17:00)
== END 2020-01-04 17:02 | DRG 194 ==
LOC: ER 17:02 → TELE1 19:26 → MEDSG1 20:13
PROVIDERS: ADMIT Family Medicine
PROC: 5A1D70Z Performance of Urinary Filtration, Intermittent, Less than 6 Hours Per Day (ICD-10-PCS; principal; 2020-01-02)
PROC: 30233N1 Transfusion of Nonautologous Red Blood Cells into Peripheral Vein, Percutaneous Approach (ICD-10-PCS; 2020-01-03)
DX: I13.2 Hypertensive heart and chronic kidney disease with heart failure and with stage 5 chronic kidney disease, or end stage renal disease (principal); E11.22 Type 2 diabetes mellitus with diabetic chronic kidney disease; E87.5 Hyperkalemia; E83.39 Other disorders of phosphorus metabolism; E83.41 Hypermagnesemia; N25.0 Renal osteodystrophy; N18.6 End stage renal disease; E87.1 Hypo-osmolality and hyponatremia; I50.33 Acute on chronic diastolic (congestive) heart failure; Z99.2 Dependence on renal dialysis; Z79.4 Long term (current) use of insulin; E78.5 Hyperlipidemia, unspecified; F41.9 Anxiety disorder, unspecified; I25.10 Atherosclerotic heart disease of native coronary artery without angina pectoris; J45.909 Unspecified asthma, uncomplicated; J98.11 Atelectasis; Z91.19 Patient's noncompliance with other medical treatment and regimen; K21.9 Gastro-esophageal reflux disease without esophagitis; D63.1 Anemia in chronic kidney disease; R74.8 Abnormal levels of other serum enzymes; G47.33 Obstructive sleep apnea (adult) (pediatric); N25.81 Secondary hyperparathyroidism of renal origin
CPT/HCPCS: 36415; 71045-TC; 80048-TC; 80061-TC; 80076-TC; 82962-TC; 83735-TC; 83880; 84100-TC; 85025-TC; 85027-TC; 85385-TC; 85610-TC; 86850-TC; 86921-TC; 87081-TC; 90935-TC; 94799-TC; G0378; J0885; J1815; J2060; J7030; P9016-BL